=== PATIENT | female | born 1950 | race Caucasian/White ===

== ENCOUNTER → 2020-05-10 13:58 | Outpatient (BNVA) | payer MEDICARE, OTHER, SELFPAY | PROVIDERS: Family Provider Pediatrics; PCP Pediatrics; Visit Provider Specialist | DX: G62.9 Polyneuropathy, unspecified (principal); F32.9 Major depressive disorder, single episode, unspecified; M96.1 Postlaminectomy syndrome, not elsewhere classified; Z87.891 Personal history of nicotine dependence | CPT/HCPCS: 99205 ==